=== PATIENT | male | born 1960 | race Caucasian/White ===

== ENCOUNTER 2020-05-16 11:11 | Emergency (ER) | payer OTHER ==
[~2020-05-16] VITALS: Ht 193 cm; Wt 104.5 kg
[2020-05-16 11:19] VITALS: TEMP 98.5
[2020-05-16 11:38] LABS: BASO # 0.1 (0.0-0.2); BASO % 1.1 % (0.0-2.0); EOS # 0.1 (0.0-0.7); EOS % 2.5 % (0-4.0); GRAN # 3.2 (1.4-6.5); GRAN % 58.5 % (42.2-75.2); HEMOGLOBIN 15.6 g/dl (13.5-18.0); LYMPH # 1.7 (1.2-3.4); LYMPH % 30.5 % (20.0-51.0); MEAN CELL VOLUME 91 fl (80.0-100.0); MEAN CORPUSCULAR HEMOGLOBIN 32 pg (27.0-31.0); MEAN CORPUSCULAR HGB CONC 35 g/dl (33.0-37.0); MEAN PLATELET VOLUME 8.9 fl (7.4-10.4); MONO # 0.4 (0.1-0.6); MONO % 6.9 % (1.7-9.3); PLATELET COUNT 203 K/mm3 (130-400); RED BLOOD COUNT 4.93 M/mm3 (4.20-5.60); REDCELL DISTRIBUTION WIDTH-CV 11.9 % (11.5-14.5)
[2020-05-16 11:47] LABS: PROTHROMBIN TIME 11.6 SECONDS (9.7-12.8)
[2020-05-16] MEDS ORDERED: INDOCIN SR 75MG75 MG PO (12:09)
[2020-05-16] MEDS ORDERED: CELEXA 20MG20 MG/TAB PO (12:10)
[2020-05-16] MEDS ORDERED: CRESTOR 10MG10 MG PO (12:11)
[2020-05-16] MEDS ORDERED: MASON NATURAL2000 IU PO (12:11)
[2020-05-16 12:34] LABS: ALANINE AMINOTRANSFERASE 19 U/L (4-49); ALBUMIN 4.8 gm/dL (3.5-5.0); ALKALINE PHOSPHATASE 66 U/L (50-136); ANION GAP 7 mmol/L (7-16); AST,SGOT 46 U/L (15-37); BILIRUBIN,TOTAL 1.1 mg/dL (0.0-1.0); BLOOD UREA NITROGEN 12 mg/dL (9-20); CALCIUM 9.5 mg/dL (8.4-10.2); CARBON DIOXIDE 27 mmol/L (22-30); CHLORIDE 100 mmol/L (98-107); CREATININE, serum 0.84 (0.66-1.25); GLUCOSE 126 mg/dL (74-106); LIPASE 54 U/L (23-300); POTASSIUM 4.5 mmol/L (3.4-5.0); SODIUM 134 mmol/L (137-145); TOTAL PROTEIN 8.6 gm/dL (6.4-8.2)
[2020-05-16 12:51] LABS: TROPONIN-I < 0.012 ng/mL (0.000-0.035)
[2020-05-16 14:30] VITALS: BP 153/96; PULSE 67
== END 2020-05-16 14:35 | disposition home or self-care (01) ==
LOC: COL.ER 11:11
PROVIDERS: Emergency Medicine
DX: R42 Dizziness and giddiness (principal)
CPT/HCPCS: J7030